=== PATIENT | male | born 1960 | race Caucasian/White ===

== ENCOUNTER 2016-05-23 09:29 | Emergency (ER) | payer SELFPAY ==
[~2016-05-23] VITALS: Ht 180.3 cm; Wt 99.0 kg
[~2016-05-23 09:29] MED LIST: LISI-363 PO; METH10CO3 PO
[2016-05-23 09:42] VITALS: BP 145/103; PULSE 78; RESP 16; TEMP 99.1; O2SAT 98
[2016-05-23] MEDS ORDERED: LISI-515 PO (09:54)
[2016-05-23] MEDS ORDERED: METH40TA PO (09:54)
[2016-05-23] MEDS ORDERED: KETOROLAC TROMETHAMINE 60 MG/2 ML (IM) VIAL IM ONE (11:30)
--- NOTE | 2016-05-23 11:31 | PD ---
HPI Chief Complaint: Musculoskeletal Complaint Time Seen by Provider: 11:18 Travel History International Travel<30 days: No Contact w/Intl Traveler<30days: No Traveled to known affect area: No History of Present Illness HPI 55 year-old male presents to the emergency room for evaluation of bilateral wrist pain since yesterday morning. He woke up with the pain yesterday morning. States the pain worsened throughout the day. He tried to give one day to see if the pain would subside but when he woke up this morning and the pain continued, he decided to come to the emergency room. Pain is localized to the bilateral wrists with no specific bony tenderness. Worsened with range of motion. Patient states he moves his fingers he can feel his tendons pulling in his wrists. Pain was so severe he had difficulty sleeping. Pain is improved with elevation over the head. Denies trauma or injury. Denies previous injury to wrists. 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 He was laid off 5 months ago. Patient states he is not allergic to Motrin and can take it without difficult. Denies GI bleed. Denies fever, chills, nausea, vomiting, and IV drug use. 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 Afebrile. Ambulatory. SKIN: Warm and dry. No erythema or ecchymosis. Very mild increased warmth around the bilateral wrists. HEAD: Normocephalic. EYES: No scleral icterus. No injection or drainage. NECK: Supple, trachea midline. No JVD or lymphadenopathy. EXTREMITY: Bilateral wrists extremely tender to palpation. No radial or ulnar styloid tenderness. Limited range of motion in bilateral wrists secondary to pain. Patient can extend and flex about 20 in either direction. Trace edema bilaterally. 2+ radial pulses bilaterally. Strength 4/5 and equal in both hands. Radial, ulnar, and median nerves intact bilaterally but with decreased strength. Data Data Last Documented VS Vital Signs Date Time Temp Pulse Resp B/P Pulse Ox O2 Delivery O2 Flow Rate FiO2 05/23/16 09:42 99.1 78 16 145/103 98 Orders Ketorolac Inj (Toradol Inj) (05/23/16 11:30) [facility] Medical Decision Making Medical Screen Exam Complete: Yes Emergency Medical Condition: Yes Medical Record Reviewed: Yes Differential Diagnosis Osteoarthritis versus rheumatoid arthritis versus carpal tunnel versus de Quervain's tenosynovitis Narrative Course 55-year-old male presents to the emergency room for evaluation of bilateral wrist pain that started yesterday morning. No trauma or injury. No history of wrist pain. Denies fever, chills, nausea, vomiting, or IV drug use. Physical exam reveals bilateral wrists extremely tender to palpation. No radial or ulnar styloid tenderness. Limited range of motion in bilateral wrists secondary to pain. Patient can extend and flex about 20 in either direction. 2+ radial pulses bilaterally. Strength 4/5 and equal in both hands. Radial, ulnar, and median nerves intact bilaterally but with decreased strength. Given bilateral distribution, this is likely osteoarthritis or rheumatoid arthritis. Unlikely to be septic arthritis as it is bilateral, there are no risk factors, and there is no erythema or significant edema. Patient was given Toradol in the emergency room and discharged with prescriptions for ibuprofen and prednisone. Told to follow up with a primary care physician for outpatient workup of inflammatory arthritis or return to the emergency room for worsening symptoms. He understands and agrees to this plan. Diagnosis Primary Impression: Osteoarthritis of wrists, bilateral Qualified Code: M19.031 - Osteoarthritis of both wrists, unspecified osteoarthritis type Referrals: Primary Care Physician Patient Instructions: General Instructions, Osteoarthritis (ED) Additional Instructions: Rest and drink plenty of fluids. Take Mobic with food as directed, as needed for pain. Elevate and apply ice to the affected area for 20 minutes at a time, as needed for pain and swelling. Follow-up with a primary care physician. Return to the emergency room for worsening symptoms. Med/Other Pt SpecificInfo: Prescription(s) given Scripts Ibuprofen 600 Mg Fvb140 Mg PO Q8HR PRN (PAIN) #15 TAB Ref 0 Prov:Lidia Mccall MD 05/23/16 Prednisone 20 Mg Tab40 Mg PO DAILY 5 Days Ref 0 Prov:Lidia Mccall MD 05/23/16 Disposition: 01 DISCHARGE HOME Condition: Stable Elif Edwards May 23, 2016 11:31
[2016-05-23] MEDS ORDERED: PRED20 PO (11:40)
[2016-05-23] MEDS ORDERED: IBUP-232 PO (11:40)
== END 2016-05-23 11:56 | disposition home or self-care (01) ==
LOC: PHEFT 09:29
DX: M19.031 Primary osteoarthritis, right wrist (principal); M19.032 Primary osteoarthritis, left wrist; I10 Essential (primary) hypertension; F11.20 Opioid dependence, uncomplicated; Z86.73 Personal history of transient ischemic attack (TIA), and cerebral infarction without residual deficits; I25.10 Atherosclerotic heart disease of native coronary artery without angina pectoris; Z79.82 Long term (current) use of aspirin
CPT/HCPCS: 96372; 99283; J1885